=== PATIENT | male | born 1945 | race Caucasian/White ===

== ENCOUNTER 2017-03-04 08:05 | Day surgery (SDC) | payer OTHER, MEDICARE ==
[~2017-03-04 08:05] MED LIST: ALLOPURINOL300 M1 PO; COMPAZINE10 MG PO; DEPAKOTE500 M1 PO; FLOMAX0.4 M1 PO; LIPITOR80 M1 PO; LOPRESSOR50 M1 PO; MULTIVITAMIN; NORVASC10 M2 PO; OMEPRAZOLE20 M3 PO; POTASSIUM CHLO20 ME3 PO; PRINIVIL20 M1 PO; VENLAFAXINE HC150 M2 PO; ZOFRAN ODT8 MG PO
[2017-03-04 08:58] LABS: BASO % 0.5 % (0-2); BASO ABSOLUTE COUNT 0.1 tho/cmm (0.0-0.2); EOS % 2.4 % (0-7); EOSINOPHIL ABSOLUTE COUNT 0.2 tho/cmm (0.0-0.7); HCT-HEMATOCRIT 45.3 % (36.0-53.5); HGB-HEMOGLOBIN 16.3 gm/dl (13.5-17.0); IMMATURE GRANULOCYTES ABSOLUTE 0.03 tho/cmm (0-0.03); IMMATURE GRANULOCYTES PERCENT 0.3 % (0-0.3); LYMPH % 30.4 % (20-45); LYMPH ABSOLUTE COUNT 2.8 tho/cmm (0.8-4.5); MCH (MEAN CORPUSCULAR HGB) 31.5 pg (28.0-32.0); MCV (MEAN CELL VOLUME) 87.5 fl (82.0-96.0); MEAN PLATELET VOLUME 11.9 cmc (9.4-12.4); MONO % 11.1 % (0-12); NEUTROPHIL ABSOLUTE COUNT 5.1 tho/cmm (1.6-8.0); NEUTROPHIL-AUTOMATED 5.1 tho/cmm (1.6-8.0); NEUTROPHILS % 55.3 % (40-80); PLATELET COUNT 204 tho/cmm (150-450); RED BLOOD COUNT 5.18 mil/cmm (4.40-5.70); RED CELL DISTRIBUTION WIDTH 12.4 % (12.4-16.4); WHITE BLOOD COUNT 9.3 tho/cmm (4.0-10.0)
[2017-03-04 09:09] LABS: INR 0.9 INR (0.9-1.1); PROTHROMBIN TIME 9.9 SECONDS (9.0-13.6)
[2017-03-04 09:16] LABS: BLOOD UREA NITROGEN 16 mg/dl (6-24); CALCIUM 9.4 mg/dl (8.5-10.5); CARBON DIOXIDE-VENOUS 27 mmol/L (22-32); CHLORIDE 97 mmol/l (96-110); CREATININE 1.15 mg/dl (0.60-1.30); SODIUM 133 mmol/L (135-145); eGFR VALUE FOR BLACK 74 mL/Min
[2017-03-04 09:21] LABS: ANION GAP 13 mmol/L (0-20); GLUCOSE 454 mg/dL (70-110); POTASSIUM 4.4 mmol/L (3.7-5.1)
== END 2017-03-04 11:52 | disposition other institution (70) ==
LOC: RADSP 08:05 → SHSB 08:06
PROVIDERS: Radiology Diagnostic Radiology
PROC: 05HM33Z Insertion of Infusion Device into Right Internal Jugular Vein, Percutaneous Approach (ICD-10-PCS; principal; 2017-03-04)
PROC: B513YZA Fluoroscopy of Right Jugular Veins using Other Contrast, Guidance (ICD-10-PCS; 2017-03-04)
PROC: B543ZZA Ultrasonography of Right Jugular Veins, Guidance (ICD-10-PCS; 2017-03-04)
DX: C83.31 Diffuse large B-cell lymphoma, lymph nodes of head, face, and neck (principal); Z79.899 Other long term (current) drug therapy
CPT/HCPCS: C1788; J0690; J2250; J3010; J7030